=== PATIENT | female | born 1995 | race African-American/Black ===

== ENCOUNTER 2017-10-21 04:45 | Inpatient (IN) | payer OTHER ==
[~2017-10-21 04:45] MED LIST: DEXTROSE 5%-LACTATED RINGERS 1,000 ML IV SCH
[2017-10-21] MEDS ORDERED: AMPICILLIN - 2 GM in SODIUM CHLORIDE 100 ML IVPB ONE (05:00)
[2017-10-21] MEDS ORDERED: AMPICILLIN SODIUM 2 GM VIAL ONE (05:09)
[2017-10-21 05:30] VITALS: BMI 26.4
[2017-10-21 05:41] LABS: BASO % 0.4 % (0-2.0); EOS % 0.5 % (0-4.5); HEMATOCRIT 30.8 % (32.4-45.2); HEMOGLOBIN 9.7 GM/dL (10.7-15.3); LYMPH % 23.3 % (8-40); MCH 21.9 pg (25.7-33.7); MCHC 31.4 g/dl (32.0-36.0); MEAN CELL VOLUME 69.9 fl (80-96); MEAN PLT VOLUME 9.1 fl (7.5-11.1); MONO % 6.9 % (3.8-10.2); NEUT % 68.9 % (42.8-82.8); PLATELET COUNT 171 K/MM3 (134-434); RBC 4.41 M/mm3 (3.60-5.2); RDW 23.9 % (11.6-15.6); WHITE BLOOD COUNT 8.3 K/mm3 (4.0-10.0)
[2017-10-21 05:49] LABS: ADD RBC MORPHOLOGY YES
[2017-10-21 05:58] LABS: PROTHROMBIN TIME (PATIENT) 11.3 SEC (9.98-11.88)
[2017-10-21 06:00] LABS: ACTIVATED PTT 24.3 SECONDS (26.9-34.4)
[2017-10-21 06:12] LABS: ANION GAP 9 (8-16); BLOOD UREA NITROGEN 16 mg/dL (7-18); CHLORIDE 108 mmol/L (98-107); CO2 23 mmol/L (21-32); CREATININE 0.6 mg/dL (0.55-1.02); GLUCOSE,RANDOM 82 mg/dL (74-106); POTASSIUM 3.8 mmol/L (3.5-5.1); SODIUM 140 mmol/L (136-145)
[2017-10-21] MEDS ORDERED: PROMETHAZINE HCL 25 MG/1 ML VIAL IVPB ONE (07:35)
[2017-10-21] MEDS ORDERED: BUTORPHANOL TARTRATE 1 MG/ML VIAL IVPUSH ONE (07:35)
[2017-10-21] MEDS ORDERED: BUTORPHANOL TARTRATE 1 MG/ML VIAL ONE ×2 (07:38)
[2017-10-21] MEDS ORDERED: PROMETHAZINE HCL 25 MG/1 ML VIAL ONE (07:38)
[2017-10-21] MEDS ORDERED: AMPICILLIN - 1 GM in SODIUM CHLORIDE 100 ML IVPB SCH (09:00)
--- NOTE | 2017-10-21 09:00 | HP ---
Past Medical History - Admission Chief Complaint: Labor pain History of Present Illness: 22 yo @ 38.4 weeks gestation, EDC 10/30/17, admitted for rupture of membrane. History Source: Patient Limitations to Obtaining History: No Limitations - Past Medical History ...: 4 ...Para: 1 ...Term: 0 ...: 1 ...Spon : 1 ...Induced : 1 ...Multiple Gestation: 0 ...LMP: 02/10/17 ... Weeks Gestation by Dates: 36.1 ...EDC by Dates: 11/17/17 ...EDC by Sono: 10/30/17 - Past Surgical History Past Surgical History: Yes: None Hx Myomectomy: No Hx Transabdominal Cerclage: No - Smoking History Smoking history: Never smoked Aproximately how many cigarettes per day: 0 - Alcohol/Substance Use Hx Alcohol Use: No History of Substance Use: reports: None - Social History History of Recent Travel: No Home Medications - Allergies Allergies/Adverse Reactions: Allergies Allergy/AdvReac Type Severity Reaction Status Date / Time No Known Allergies Allergy Verified 11/07/14 11:38 - Home Medications Home Medications: Ambulatory Orders Ferrous Sulfate [Feosol] 325 mg PO TID 10/21/17 Tablet 1 tablet PO DAILY 10/21/17 Family Disease History - Family Disease History Family History: Unremarkable Review of Systems - Review of Systems Constitutional: reports: No Symptoms Eyes: reports: No Symptoms HENT: reports: No Symptoms Neck: reports: No Symptoms Cardiovascular: reports: No Symptoms Respiratory: reports: No Symptoms Gastrointestinal: reports: No Symptoms Genitourinary: reports: Other (Rupture of membrane) Musculoskeletal: reports: No Symptoms Integumentary: reports: No Symptoms Neurological: reports: No Symptoms Endocrine: reports: No Symptoms Hematology/Lymphatic: reports: No Symptoms Psychiatric: reports: No Symptoms Pain Intensity: 6 Physical Exam - Maternity Vital Signs: Vital Signs Temperature 98.7 F 10/21/17 07:45 Pulse Rate 65 10/21/17 07:45 Respiratory Rate 18 10/21/17 07:45 Blood Pressure 124/81 10/21/17 07:45 O2 Sat by Pulse Oximetry (%) Constitutional: Yes: Well Nourished Eyes: Yes: Conjunctiva Clear HENT: Yes: Atraumatic Neck: Yes: Supple Cardiovascular: Yes: Regular Rate and Rhythm Lungs: Clear to auscultation - Abdominal Exam/OB Number of Fetuses: Single Presentation: Vertex - Vaginal Exam/OB Dilatation (cm): 5 Effacement (%): 90 Amniotic Membrane Status: Ruptured Amniotic Fluid: Yes: Clear Station: -1 - Physical Exam Musculoskeletal: Yes: WNL ...Motor Strength: WNL Psychiatric: Yes: Alert, Oriented - Labs Lab Results: CBC, BMP 10/21/17 03:18 10/21/17 03:18 Problem List - Problems (1) 38 weeks gestation of Code(s): Z3A.38 - 38 WEEKS GESTATION OF (2) Spontaneous rupture of amniotic membranes Code(s): [id number] - Assessment/Plan IUP @ 38 weeks Spontaneous rupture of membrane Admit to L&D Anticipate
[2017-10-21 09:10] LABS: COCAINE, UR NEGATIVE ng/ml (CUTOFF=300); METHADONE, UR NEGATIVE ng/ml (CUTOFF=300); OPIATES, URI NEGATIVE ng/ml (CUTOFF=300); PHENCYCLIDINE,URINE NEGATIVE ng/ml (CUTOFF=25); URINE AMPHETAMINES NEGATIVE ng/ml (CUTOFF=500); URINE BARBITURATES NEGATIVE ng/ml (CUTOFF=200); URINE BENZODIAZEPINES NEGATIVE ng/ml (CUTOFF=200)
[2017-10-21] MEDS ORDERED: OXYTOCIN 20 UNITS in 0.9% NS 20 UNIT/1,000 ML INFUS.BAG IV ONE (09:15)
[2017-10-21] MEDS ORDERED: LIDOCAINE HCL 1% PRESERVATIVE FREE - 30ML VIAL ONE (09:15)
[2017-10-21 09:56] LABS: MACROCYTOSIS 1+; OVALOCYTE 1+
[2017-10-21] MEDS ORDERED: BENZOCAINE 28 GM HEMORRHOIDAL OINTMENT TP PRN (10:23)
[2017-10-21] MEDS ORDERED: METHYLERGONOVINE MALEATE 0.2 MG/1 ML AMP IM PRN (10:23)
[2017-10-21] MEDS ORDERED: BISACODYL 10 MG SUPP.RECT RC PRN (10:23)
[2017-10-21] MEDS ORDERED: WITCH HAZEL 50% (TUCKS) 40 PAD/JAR PAD TP PRN (10:23)
[2017-10-21] MEDS ORDERED: oxyCODONE HCL 5 MG TABLET PO PRN (10:23)
[2017-10-21] MEDS ORDERED: BENZOCAINE 20% 57 GM BOTTLE TP PRN (10:23)
[2017-10-21] MEDS ORDERED: OXYTOCIN 20 UNITS in 0.9% NS 20 UNIT/1,000 ML INFUS.BAG IV SCH (10:30)
--- NOTE | 2017-10-21 10:36 | PN ---
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 Present: No Gender: Female Weight: 5 lb 13 oz Position: Left, OA Total Hours ROM (Hrs/Mins): 6h 45min - 1 Minute Total Score: 9 5 Minutes Total Score: 9 - [place] Feeding Plan Initial Plan: Elected not to breastfeed exclusively throughout hospitalization Remarks - Remarks Remarks: 22 yrs 35.1 weeks by dates , & by sono 38.4/7 weeks, Edc 10/30/17 , admitted for SROM , progressed in labor pnc at [address] [place] [address] uneventful GBS positive, she received 2 doses of Iv Ampicillin for prophylaxis stadol 2mg + phenrgan 25 mg iv was given for labor analgesia Intrapartum course was uneventful. h/o Anemia . h/h 9.7/30.8. Urine drug tox neg . Selected Entries 10/21/17 10:30 Temperature 98.9 F Pulse Rate 74 Blood Pressure 116/69
[2017-10-21] MEDS: FERROUS SO4 325 MG TABLET (FP) PO SCH (17:09)
[2017-10-22] MEDS: ACETAMINOPHEN 325 MG TABLET (FP) PO PRN ×2 (02:39→21:55)
[2017-10-22] MEDS: IBUPROFEN 600 MG TABLET (FP) PO PRN ×2 (02:40→21:55)
--- NOTE | 2017-10-22 07:48 | PN ---
Progress Note (short form) - Note Progress Note: ppd 1 doing well, no c/o ,no excess vaginal bleeding CBC, BMP 10/21/17 03:18 10/21/17 03:18 Last Vital Signs Temp Pulse Resp BP Pulse Ox 98.1 F 62 20 115/67 10/22/17 05:07 10/22/17 05:07 10/22/17 05:07 10/22/17 05:07 abdomen soft, no distension, no cva uterus firm lochia mild no calf tenderness plan ambulate , cbc
[2017-10-22 08:59] LABS: BASO % 0.3 % (0-2.0); EOS % 1.5 % (0-4.5); HEMOGLOBIN 8.5 GM/dL (10.7-15.3); LYMPH % 23.5 % (8-40); MCH 21.7 pg (25.7-33.7); MCHC 30.3 g/dl (32.0-36.0); MEAN CELL VOLUME 71.5 fl (80-96); MEAN PLT VOLUME 9.1 fl (7.5-11.1); MONO % 6.6 % (3.8-10.2); NEUT % 68.1 % (42.8-82.8); PLATELET COUNT 138 K/MM3 (134-434); RBC 3.91 M/mm3 (3.60-5.2); RDW 24.1 % (11.6-15.6)
[2017-10-22] MEDS ORDERED: DIPHTH,PERTUSS(ACELL),TET 0.5 ML DISP.SYRIN IM ONE (10:00)
[2017-10-22] MEDS: PRENATAL VITAMINS W/ FOLIC ACID TABLET (FP) PO SCH (10:21)
[2017-10-22] MEDS: FERROUS SO4 325 MG TABLET (FP) PO SCH ×2 (10:21→17:17)
[2017-10-22] MEDS ORDERED: SENNOSIDES/DOCUSATE COMBO (SENNA PLUS) TABLET (UD) PO PRN (22:00)
--- NOTE | 2017-10-23 07:02 | DS ---
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 Vital Signs: Vital Signs Temperature 98.0 F 10/22/17 21:35 Pulse Rate 76 10/22/17 21:35 Respiratory Rate 20 10/22/17 21:35 Blood Pressure 125/70 10/22/17 21:35 O2 Sat by Pulse Oximetry (%) Constitutional: Yes: Well Nourished Eyes: Yes: Conjunctiva Clear HENT: Yes: Atraumatic Neck: Yes: Supple, Trachea Midline Cardiovascular: Yes: Regular Rate and Rhythm Respiratory: Yes: Regular, CTA Bilaterally Gastrointestinal: Yes: Normal Bowel Sounds Pelvis: Yes: WNL External Genitalia: Yes: Normal Vaginal Exam: Yes: Normal Cervix: Yes: Normal Uterus: Yes: Firm ....Post : Yes: Uterus firm, Moderate lochia serosa Breast(s): Yes: WNL Musculoskeletal: Yes: WNL Extremities: Yes: WNL Neurological: Yes: Alert, Oriented Psychiatric: Yes: Alert, Oriented Labs: CBC, BMP 10/22/17 07:35 10/21/17 03:18 Delivery - Delivery Vaginal Delivery: No Problems, Spontaneous (head delievered in Cindy position , immediate suction of mouth & nose was done .) Episiotomy/Laceration: None EBL (cc): 250 Delivery, Single - Stages of Labor Date 1st Stage Initiatied: 10/21/17 Time 1st Stage Initiated: 03:45 Date 2nd Stage Initiated: 10/21/17 Time 2nd Stage Initiated: 09:00 Date of Delivery: 10/21/17 Time of Delivery: 09:30 Time Placenta Delivered: 09:35 Placenta: Yes: Spontaneous, Uterine Exploration - Condition of Aprn/Deputy County Clerk Present: No Gender: Female Weight: 5 lb 13 oz Position: Left, OA Total Hours ROM (Hrs/Mins): 6h 45min - 1 Minute Total Score: 9 5 Minutes Total Score: 9 - Feeding Plan Initial Plan: Elected not to breastfeed exclusively throughout hospitalization Discharge Summary Reason For Visit: LABOR ADMIT Current Active Problems 38 weeks gestation of (Acute) Anemia (Acute) Normal spontaneous vaginal delivery (Acute) Spontaneous rupture of amniotic membranes (Acute) Procedures: Principal: Spontaneous vaginal delivery Hospital Course: Routine care Condition: Good - Instructions Diet, Activity, Other Instructions: Post Instructions DIET: Continue good diet high in protein, calcium, and iron rich foods. Drink at least eight (8) glasses of water daily in addition to other fluids. ___ Regular diet MEDICATIONS: Continue vitamins and iron as previously directed. Motrin and Tylenol may be taken for minor discomfort. ACTIVITY: Mild to moderate exercise may be started in two (2) weeks. Take frequent rest periods. Resume normal activity after six (6) week check up. WOUND CARE OF OPERATIVE SITE: Continue use of perineal bottle until vaginal discharge stops. Keep area clean. Shower daily. Keep abdominal wound dry. Report any drainage or redness to physician. Tub baths, tampons and douches are not permitted for [address] Breast feeding & or Bottle feeding BREAST CARE: (For those that are not breast feeding): If engorgement occurs: Wear tight fitting bra. Take Tylenol or Motrin for pain. Apply cold packs (ice in bags to each breast ) FAMILY PLANNING: There are many control alternatives to pursue and they should be discussed at your first office visit. You may resume sexual activity after your six (6) week check up. (Remember, breast feeding is not a contraceptive) NEXT PHYSICIAN APPOINTMENT: Be certain to call for a six (6) week appointment, unless otherwise directed. Call Clinic or got to Emergency Dept if you have any of the following: Heavy vaginal bleeding Painful urination Leg pain Unusual odor noted to vaginal bleeding High fever Red streaking noted on breast Referrals: Anahi Kirby MD [Staff Physician] - Disposition: HOME - Home Medications Comprehensive Discharge Medication List: Ambulatory Orders Ferrous Sulfate [Feosol] 325 mg PO TID 10/21/17 Tablet 1 tablet PO DAILY 10/21/17 Acetaminophen [Tylenol .Regular Strength -] 650 mg PO Q3H PRN tablet 10/22/17 Ferrous Sulfate [Feosol] 325 mg PO BIDWM #60 tab 10/22/17 Ibuprofen [Motrin -] 200 mg PO Q4H PRN tablet 10/22/17 Vitamins (Sjr) - 1 tab PO DAILY #30 tablet 10/22/17
[2017-10-23] MEDS: FERROUS SO4 325 MG TABLET (FP) PO SCH (08:14)
[2017-10-23 09:13] VITALS: BP 106/54; PULSE 55; TEMP 99.2
[2017-10-23] MEDS: PRENATAL VITAMINS W/ FOLIC ACID TABLET (FP) PO SCH (09:36)
== END 2017-10-23 12:30 | disposition home or self-care (01) | DRG 560 ==
LOC: JLDR 04:45 → J3W 11:09
PROVIDERS: ADMIT Obstetrics & Gynecology; ATTEND Obstetrics & Gynecology
PROC: 10E0XZZ Delivery of Products of Conception, External Approach (ICD-10-PCS; principal; 2017-10-21)
DX: O99.820 Streptococcus B carrier state complicating pregnancy (principal); O99.02 Anemia complicating childbirth; Z3A.38 38 weeks gestation of pregnancy; Z37.0 Single live birth
CPT/HCPCS: 36415; 59409; 80048; 80307; 85025; 85610; 85730; 86593; 86850; 86900; 86901; 87389; 90715

== ENCOUNTER 2019-08-07 22:08 | Emergency (ER) | payer OTHER ==
[2019-08-07 22:15] VITALS: BP 116/64; PULSE 73; TEMP 98.7; BMI 24.3
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
[2019-08-07] MEDS ORDERED: AMOX TR/POT CLAV 875MG/125MG TABLETS (FP) PO ONE (23:42)
[2019-08-08] MEDS ORDERED: AMOX TR/POT CLAV 875MG/125MG TABLETS (FP) ONE (00:17)
[2019-08-08 00:21] LABS: BASO % 0.9 % (0-2.0); EOS % 0.7 % (0-4.5); HEMATOCRIT 34.2 % (32.4-45.2); HEMOGLOBIN 10.8 GM/dL (10.7-15.3); MCH 23.1 pg (25.7-33.7); MCHC 31.6 g/dl (32.0-36.0); MEAN CELL VOLUME 73.3 fl (80-96); MEAN PLT VOLUME 9.4 fl (7.5-11.1); MONO % 7.6 % (3.8-10.2); NEUT % 51.8 % (42.8-82.8); PLATELET COUNT 267 K/MM3 (134-434); RBC 4.67 M/mm3 (3.60-5.2); RDW 16.5 % (11.6-15.6); WHITE BLOOD COUNT 6.8 K/mm3 (4.0-10.0)
[2019-08-08 00:48] LABS: ALBUMIN 3.6 g/dl (3.4-5.0); BILIRUBIN,TOTAL 0.3 mg/dL (0.2-1); BLOOD UREA NITROGEN 22.6 mg/dL (7-18); CALCIUM 8.9 mg/dL (8.5-10.1); CREATININE 0.8 mg/dL (0.55-1.3); PHOSPHOROUS 3.4 mg/dL (2.5-4.9); POTASSIUM 3.8 mmol/L (3.5-5.1); TOT PROT 7.1 g/dl (6.4-8.2); URIC ACID 4.7 mg/dL (2.6-7.2)
[2019-08-08] MEDS ORDERED: HIV POST EXPOSURE PROPHYLAXIS KIT PO ONE ×2 (01:45→02:25)
== END 2019-08-08 02:50 | disposition home or self-care (01) ==
LOC: JER 22:08
DX: S59.811A Other specified injuries right forearm, initial encounter (principal); Z77.21 Contact with and (suspected) exposure to potentially hazardous body fluids; S51.851A Open bite of right forearm, initial encounter; W50.3XXA Accidental bite by another person, initial encounter; Y93.89 Activity, other specified; Y92.118 Other place in children's home and orphanage as the place of occurrence of the external cause; Y99.0 Civilian activity done for income or pay
CPT/HCPCS: 36415; 80053; 82465; 82977; 83615; 84100; 84478; 84550; 84703; 85025; 86317; 86704; 86706; 86803; 87340; 87389; 99282-25

== ENCOUNTER 2022-02-20 02:37 | Emergency (ER) | payer OTHER ==
[2022-02-20] MEDS ORDERED: ACETAMINOPHEN 500 MG TABLET (FP) PO ONE (03:33)
[2022-02-20] MEDS ORDERED: ONDANSETRON *ODT* 4 MG TABLET SL ONE (03:33)
[2022-02-20] MEDS ORDERED: ONDANSETRON *ODT* 4 MG TABLET ONE (03:37)
[2022-02-20] MEDS ORDERED: ACETAMINOPHEN 500 MG TABLET (FP) ONE (04:00)
[2022-02-20 04:14] VITALS: BP 110/72; PULSE 86; TEMP 102.2; BMI 26.1
== END 2022-02-20 05:03 | disposition home or self-care (01) ==
LOC: JER 02:37
DX: R50.9 Fever, unspecified (principal); R11.0 Nausea; R63.0 Anorexia
CPT/HCPCS: 0241U-QW; 99283-25; Q0162